=== PATIENT | male | born 1930 | race Caucasian/White ===

== ENCOUNTER 2019-10-25 17:58 | Emergency (ER) | payer OTHER, MEDICARE, BC ==
[2019-10-25] MEDS ORDERED: DIPHTH,PERTUSS(ACELL),TET 0.5 ML DISP.SYRIN IM ONE ×2 (18:20→18:22)
[2019-10-25 18:24] VITALS: BP 131/60; PULSE 93; TEMP 98.4; BMI 23.6
--- NOTE | 2019-10-25 20:03 | PDOC ---
Documentation entered by Kari Dozier SCRIBE, acting as scribe for Brittney Rodriguez DO. Brittney Rodriguez DO: This documentation has been prepared by the umairibarely, Kari Dozier SCRIBE, under my direction and personally reviewed by me in its entirety. I confirm that the documentation accurately reflects all work, treatment, procedures, and medical decision making performed by me. 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 The patient reports he was out running when he slipped and tripped falling on his left side. The patient reports he was trying to avoid landing on his right side, because he is s/p right owusu surgery. The patient reports he was able to get back up without difficulty, ran about half a mile back to his car. The patient reports he ambrose stained injuries to left upper and lower extremities. Denies head injury, LOC, nausea, or vomiting. The patient reports daily use of 81mg ASA, denies any other AC use. The patient doesnt know his last tetanus. Allergies: NKA PCP: Dr. Darion Haro. Past History - Medical History Allergies/Adverse Reactions: Allergies Allergy/AdvReac Type Severity Reaction Status Date / Time No Known Allergies Allergy Verified 10/25/19 17:59 Home Medications: Ambulatory Orders Alfuzosin HCl [Alfuzosin HCl ER] 10 mg PO DAILY 10/25/19 Allopurinol [Zyloprim -] 100 mg PO BID 10/25/19 Aspirin [Aspirin EC] 81 mg PO DAILY 10/25/19 Cephalexin Monohydrate [Keflex -] 500 mg PO Q6H #28 capsule 10/25/19 Lisinopril 20 mg PO DAILY 10/25/19 Simvastatin 40 mg PO DAILY 10/25/19 Review of Systems - Review of Systems Able to Perform ROS?: Yes Comments:: 10/25/19 18:43 GENERAL/CONSTITUTIONAL: No fever or chills. No weakness. HEAD, EYES, EARS, NOSE AND THROAT: no head injury. No change in vision. No ear pain or discharge. No sore throat. GASTROINTESTINAL: No nausea, vomiting, diarrhea or constipation. GENITOURINARY: No dysuria, frequency, or change in urination. CARDIOVASCULAR: No chest pain or shortness of breath. RESPIRATORY: No cough, wheezing, or hemoptysis. MUSCULOSKELETAL: No joint or muscle swelling or pain. No neck or back pain. SKIN: +injury to left upper and lower extremities. No other injury. No rash NEUROLOGIC: No headache, vertigo, loss of consciousness, or change in strength/sensation. ENDOCRINE: No increased thirst. No abnormal weight change. HEMATOLOGIC/LYMPHATIC: No anemia, easy bleeding, or history of blood clots. ALLERGIC/IMMUNOLOGIC: No hives or skin allergy. *Physical Exam - Physical Exam 10/25/19 18:44 Constitutional: Awake, alert, oriented. No acute distress. Head: Normocephalic. Atraumatic Eyes: PERRL. EOMI. Conjunctivae are not pale. ENT: Mucous membranes are moist and intact. Posterior pharynx without exudate o r erythema. Uvula midline. Neck: Supple. Full ROM. No lymphadenopathy. Cardiovascular: Regular rate. Regular rhythm. S1, S2 regular. Pulmonary/Chest: No evidence of respiratory distress. Clear to auscultation bilaterally No wheezing, rales or rhonchi. Abdominal: Soft and non-distended. There is no tenderness. Back: No CVA tenderness. Musculoskeletal: Full range of motion of the shoulders, no tenderness. No edema. No cyanosis. No clubbing. Full range of motion in all extremities. No calf tenderness. Skin: Skin is warm and dry. Left upper extremity: +left lateral elbow skin tear +left forearm 2 skin tears. +medial wrist skin tear. +multiple skin tears to 4th and 5th digits. Multiple skin tears to the pinky. Skin tear at the PIP joint of the middle finger. Left lower extremity: +Small skin avulsion to the patella tendon. +skin tear over the anterior tibia of the left leg. +6cm irregular skin tear to Anterior tib, avulsion. +small skin tear to left leg distal to the large avulsion Right lower extremity: +healed wound to the right anterior tibia. Neurological: Alert and oriented to person, place, and time. Cranial nerves II-XII are grossly intact. Normal speech. Psychiatric: Good eye contact. Normal interaction, affect and behavior. Procedures - Laceration/Wound Repair Left Anterior Dorsal Wrist Wound Length: 2.6 to 5.0 cm Wound Explored: contaminated Wound's Depth, Shape: irregular, flap, contused tissue Irrigated w/ Saline: Yes Anesthesia: 1% Lidocaine (8) Wound Debrided: moderate Wound Repaired With: Sutures, Steri-strips Suture Size/Type: 5:0 Number of Sutures: 8 (finger got 2 sutures) Sterile Dressing Applied: Yes Progress: 10/25/19 19:57 pt tolerated well Left Anterior Leg Wound Length: 5.0 to 7.5 cm Wound Explored: contaminated Wound's Depth, Shape: irregular, flap, contused tissue Irrigated w/ Saline: Yes Anesthesia: 1% Lidocaine (7) Wound Debrided: moderate Wound Repaired With: Sutures, Steri-strips Suture Size/Type: 4:0 Number of Sutures: 8 Sterile Dressing Applied: Yes Progress: 10/25/19 19:58 pt tolerated the procedure well Left Finger 3rd digit Wound Length: to 2.5 cm Wound Explored: contaminated Wound's Depth, Shape: irregular, flap Irrigated w/ Saline: Yes Anesthesia: 1% Lidocaine (1) Wound Debrided: moderate Wound Repaired With: Sutures Suture Size/Type: 5:0 Number of Sutures: 2 Sterile Dressing Applied: Yes Progress: 10/25/19 19:59 pt tolerated the procedure well Medical Decision Making - Medical Decision Making 10/25/19 19:53 a/p: 88yo male with a mechanical trip and fall when outside running today -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 -pt was running in the park when he tripped and fell scraping his LUE and LLE -pt with multiple avulsion wounds to the arm and leg -pt with ttp over the shoulder, wrist, elbow, owusu -wounds washed -boostrix updated -multiple forearm wounds steristripped -dorsal surface of the hand - repaired with 8 5-0 sutures -L middle digit lac repair with 2 5-0 sutures -L tibia repaired with 8 4-0 sutures -dressings applied -pt pending xrays -has been ambulatory in the ER 10/25/19 20:02 pt signed out to the oncoming ed physician pending xrays and re-eval Discharge - Discharge Information Problems reviewed: Yes Clinical Impression/Diagnosis: Lacerations of multiple sites of left arm, Lacerations of multiple sites of left leg Condition: Stable Disposition: HOME - Admission No - Additional Discharge Information Prescriptions: Cephalexin Monohydrate [Keflex -] 500 mg PO Q6H #28 capsule - Follow up/Referral Referrals: ON STAFF,NOT [Primary Care Provider] - Roney Durant MD [Staff Physician] - Cabrera Serna MD [Staff Physician] - Louisa Serna [Staff Physician] - Gabriel Sue MD [Staff Physician] - Eduardo Reed MD [Staff Physician] - - Patient Discharge Instructions Patient Printed Discharge Instructions: DI for Laceration Repair Steri-Strips, DI for Laceration Repair -- Finger, DI for Laceration Repair Additional Instructions: Please keep the wound clean and dry for the next 24 hours. You may wash the wound with soap and water and pat the wounds dry. Please do not remove the steri-strips. Please avoid running until the wounds have healed. Please apply topical antibiotic cream to the wounds daily. Please have the sutures removed in 1 week. Please follow up with your PMD and your senior information security architect as scheduled. Please return to the ER with any further concerns or complaints. - Post Discharge Activity
--- NOTE | 2019-10-25 20:12 | PDOC ---
*Physical Exam - Vital Signs Last Vital Signs Temp Pulse Resp BP Pulse Ox 98.4 F 93 H 18 131/60 96 10/25/19 17:58 10/25/19 17:58 10/25/19 17:58 10/25/19 17:58 10/25/19 17:58 ED Treatment Course - Medications Given in the ED: ED Medications Discontinued Medications Generic Name Dose Route Start Last Admin Trade Name Freq PRN Reason Stop Dose Admin Diphtheria/Tetanus/Acell Pertussis 0.5 ml 10/25/19 18:20 10/25/19 18:35 Boostrix - IM 10/25/19 18:21 0.5 ml .ONCE ONE Administration ED Progress Note - Progress Note Progress Note: Care of this patient received from Dr. Rodriguez. Left shoulder, left wrist, left elbow, left tib/fib x-rays performed. Preliminary interpretation by Imaging tool and production planner of left tib/fib x-rayevidence of old fracture in the proximal tibia; no evidence of acute fracture. Remainder of the imagesno evidence of fracture or dislocation Results of the x-ray study discussed with the patient and his family. Patient asked about small amount of oozing that has appeared on the sterile gauze wrap covering the left lower leg laceration repair. Krzysztof wrap applied to the dressing for light compression effect. Patient will be discharged with instructions to remove the Krzysztof wrap from the left lower leg laceration repair site in the morning. He should keep the repaired wounds dry for the next 2 days and then can wash the areas gently, applying antibiotic ointment daily to the wounds. He should follow-up with his doctor or return to the ER in 2 days for a wound check. Meanwhile, Keflex 500 mg 4 times a day prescribed with first dose given here in the ER Suture removal should take place in 10 days (November 03) Discharge - Discharge Information Problems reviewed: Yes Clinical Impression/Diagnosis: Lacerations of multiple sites of left arm, Lacerations of multiple sites of left leg Condition: Stable Disposition: HOME - Additional Discharge Information Prescriptions: Cephalexin Monohydrate [Keflex -] 500 mg PO Q6H #28 capsule - Follow up/Referral Referrals: Roney Durant MD [Staff Physician] - Louisa Serna [Staff Physician] - Cabrera Serna MD [Staff Physician] - Gabriel Sue MD [Staff Physician] - Eduardo Reed MD [Staff Physician] - ON STAFF,NOT [Primary Care Provider] - Aravind Newby DO [Staff Physician] - - Patient Discharge Instructions Patient Printed Discharge Instructions: DI for Laceration Repair, DI for Laceration Repair Steri-Strips, DI for Laceration Repair -- Finger Additional Instructions: Please keep the wound clean and dry for the next 24 hours.Can remove the Krzysztof wrap in tomorrow AM. You may wash the wound with soap and water and pat the wounds dry. Please do not remove the steri-strips. Please avoid running until the wounds have healed. Please apply topical antibiotic cream to the wounds daily. Please have the sutures removed in 10 days. Please follow up with your PMD and your provider network analyst as scheduled. Please return to the ER with any further concerns or complaints. See your doctor or return here in 2 days for wound check Followup with orthopedist(Drs. Newby/Deniz) if you have persistent shoulder/wrist/leg pain - Post Discharge Activity
[2019-10-25] MEDS ORDERED: CEPHALEXIN MONOHYDRATE 500 MG CAPSULE (UD) PO ONE (21:12)
[2019-10-25] MEDS ORDERED: CEPHALEXIN MONOHYDRATE 500 MG CAPSULE (UD) ONE (21:12)
== END 2019-10-25 21:16 | disposition home or self-care (01) ==
LOC: FER 17:58 → SUPCPDRO 17:58 → FER 21:16
PROC: 0HQGXZZ Repair Left Hand Skin, External Approach (ICD-10-PCS; principal; 2019-10-25)
PROC: 0HQLXZZ Repair Left Lower Leg Skin, External Approach (ICD-10-PCS; 2019-10-25)
PROC: 3E0234Z Introduction of Serum, Toxoid and Vaccine into Muscle, Percutaneous Approach (ICD-10-PCS; 2019-10-25)
DX: S61.512A Laceration without foreign body of left wrist, initial encounter (principal); S61.215A Laceration without foreign body of left ring finger without damage to nail, initial encounter; S81.812A Laceration without foreign body, left lower leg, initial encounter
CPT/HCPCS: 73030-TC-LT-FY; 73070-TC-LT-FY; 73110-TC-LT-FY; 73130-TC-LT-FY; 73590-TC-LT-FY; 90715; 99285-25

== ENCOUNTER 2019-10-29 09:39 | Inpatient (IN) | payer OTHER, BC, MEDICARE ==
--- NOTE | 2019-10-29 10:38 | PDOC ---
Suture Removal/Wound Check HPI - History of Present Illness Chief Complaint: Revisit,Wound Recheck Stated Complaint: WOUND CHECK Time Seen by Provider: 10/29/19 09:53 History Source: Yes: Patient, Spouse ( present at bedside) Exam Limitations: Yes: No Limitations Treated at: [facility] ED Date of Last ED visit: 10/27/19 - Previous ED Treatment Type of procedure performed on last visit: Yes: Other (Wound check.) Antibiotics Prescribed: Yes (Keflex 500mg QID) Past History - Medical History Allergies/Adverse Reactions: Allergies Allergy/AdvReac Type Severity Reaction Status Date / Time No Known Allergies Allergy Verified 10/27/19 10:38 Home Medications: Ambulatory Orders Alfuzosin HCl [Alfuzosin HCl ER] 10 mg PO DAILY 10/25/19 Allopurinol [Zyloprim -] 100 mg PO BID 10/25/19 Aspirin [Aspirin EC] 81 mg PO DAILY 10/25/19 Cephalexin Monohydrate [Keflex -] 500 mg PO Q6H #28 capsule 10/25/19 Lisinopril 20 mg PO DAILY 10/25/19 Simvastatin 40 mg PO DAILY 10/25/19 Cancer: (sarcoma rt leg) COPD: No HTN: Yes Hypercholesterolemia: Yes - Surgical History Abdominal Surgery: Yes (HERNIA REPAIR) - Immunization History TDAP Vaccination: Yes (10/25/2019) Immunization Up to Date: Yes - Psycho-Social/Smoking History Smoking History: Never smoked Have you smoked in the past 12 months: No - Substance Abuse Hx (Audit-C & DAST Scrn) How often the patient has a drink containing alcohol: 2-3 times / week How often the patient has six or more drinks on one occasion: Never Score: In Men: 4 or > Positive; In Women: 3 or > Positive: 3 Screen Result (Pos requires Nsg. Audit-10AR): Negative In the last yr the pt used illegal drug/Rx for NonMed reason: No Score: Yes response is considered Positive: 0 Screen Result (Positive result requires Nsg. DAST-10): Negative *Physical Exam - Vital Signs Last Vital Signs Temp Pulse Resp BP Pulse Ox 98.4 F 84 16 126/62 96 10/29/19 09:40 10/29/19 09:40 10/29/19 09:40 10/29/19 09:40 10/29/19 09:40 Discharge - Discharge Information Condition: Good - Follow up/Referral - Patient Discharge Instructions - Post Discharge Activity
[2019-10-29] MEDS ORDERED: CLINDAMYCIN 600MG PREMIX IVPB 600 MG/50 ML BAG IVPB ONE (11:08)
--- NOTE | 2019-10-29 11:09 | PDOC ---
History of Present Illness - General Chief Complaint: Revisit,Wound Recheck Stated Complaint: WOUND CHECK Time Seen by Provider: 10/29/19 09:53 History Source: Patient, Spouse ( present at bedside), Old Records - History of Present Illness Initial Comments: 88 y/o male presenting to [place] ER for evaluation of traumatic left leg and left hand wound check. Briefly, the pt fell while running four days ago. Was evaluated at this department and the wounds were closed with sutures. Pt was prescribed Keflex abx, reports good compliance. Denies worsening pain, fever, chills, or discharge from the wounds. Cannot recall if the overlying redness has changed. Also of note, the pt received a call back regarding the tiny avulsion of the distal humerus. Past History - Travel History Traveled outside of the country in the last 30 days: No Close contact w/someone who was outside of country & ill: No - Medical History Allergies/Adverse Reactions: Allergies Allergy/AdvReac Type Severity Reaction Status Date / Time No Known Allergies Allergy Verified 10/27/19 10:38 Home Medications: Ambulatory Orders Alfuzosin HCl [Alfuzosin HCl ER] 10 mg PO DAILY 10/25/19 Allopurinol [Zyloprim -] 100 mg PO BID 10/25/19 Aspirin [Aspirin EC] 81 mg PO DAILY 10/25/19 Cephalexin Monohydrate [Keflex -] 500 mg PO Q6H #28 capsule 10/25/19 Lisinopril 20 mg PO DAILY 10/25/19 Simvastatin 40 mg PO DAILY 10/25/19 Cancer: Yes (sarcoma rt leg) COPD: No HTN: Yes Hypercholesterolemia: Yes - Surgical History Abdominal Surgery: Yes (HERNIA REPAIR) - Immunization History TDAP Vaccination: Yes (10/25/2019) Immunization Up to Date: Yes - Psycho-Social/Smoking History Smoking History: Never smoked Have you smoked in the past 12 months: No - Substance Abuse Hx (Audit-C & DAST Scrn) How often the patient has a drink containing alcohol: 2-3 times / week How often the patient has six or more drinks on one occasion: Never Score: In Men: 4 or > Positive; In Women: 3 or > Positive: 3 Screen Result (Pos requires Nsg. Audit-10AR): Negative In the last yr the pt used illegal drug/Rx for NonMed reason: No Score: Yes response is considered Positive: 0 Screen Result (Positive result requires Nsg. DAST-10): Negative Review of Systems - Review of Systems Able to Perform ROS?: Yes Comments:: 10 point review of systems completed. All systems negative except as noted above. *Physical Exam - Vital Signs Last Vital Signs Temp Pulse Resp BP Pulse Ox 98.4 F 84 16 126/62 96 10/29/19 09:40 10/29/19 09:40 10/29/19 09:40 10/29/19 09:40 10/29/19 09:40 - Physical Exam General Appearance: Yes: Appropriately Dressed. No: Apparent Distress HEENT: positive: Normal Voice Neck: positive: Supple Respiratory/Chest: negative: Respiratory Distress Cardiovascular: positive: Regular Rate Extremity: positive: Erythema (Localized warmth, swelling, and erythema overlying the dorsal surface of the left hand. Further warmth and erythema overlying the wounds to his right lower extremity. No lymphatic streaking noted in either extremity.), Other (Able to actively flex and extend the digits of his left hand without difficutly. Compartments soft.) Integumentary: positive: Erythema Neurologic: positive: Fully Oriented, Alert, Normal Mood/Affect, Normal Response ED Treatment Course - LABORATORY CBC & Chemistry Diagram: 10/29/19 12:10 10/29/19 12:10 Medical Decision Making - Medical Decision Making Concern for infection of traumatic wounds despite PO Keflex therapy. Will admit for IV abx and further observation given infection location on the hand. Ordered Clindamycin for IV abx given ease of transition to PO therapy. Low suspicion for sepsis/ systemic infection. Sutures removed. ED RN to apply fresh, dry dressing to the area. COVID-19 swab ordered per hospital protocol. CBC and CMP reviewed. No clinically significant derangement. Telephone discussion with NENA Miller. Verbally appraised of the pts HPI, ED course, and current plan of management. Will obs pt on med/surg for attending Dr. Becker. Will consult orthopedic / hand for further evaluation of the woun d and the arm. Case discussed with ED Attending Dr. Aceves. Mickey Calzada M.D., PGY3 Emergency Medicine Resident Discharge - Discharge Information Problems reviewed: Yes Clinical Impression/Diagnosis: Wound infection, posttraumatic, Cellulitis of left hand Traumatic open wound of left lower leg Qualifiers: Encounter type: subsequent encounter Qualified Code(s): S81.802D - Unspecified open wound, left lower leg, subsequent encounter Condition: Stable - Admission Yes - Follow up/Referral - Patient Discharge Instructions - Post Discharge Activity
[2019-10-29] MEDS ORDERED: CLINDAMYCIN PHOSPHATE 600 MG/4 ML VIAL ONE (11:29)
--- NOTE | 2019-10-29 11:29 | PDOC ---
Attending Attestation - Resident Resident Name: Mickey Calzada - ED Attending Attestation I have performed the following: I have examined & evaluated the patient, The case was reviewed & discussed with the resident, I agree w/resident's findings & plan, Exceptions are as noted - HPI HPI: 10/29/19 11:28 88 years old with hypertension status post laceration to owusu and hand status post mechanical fall with redness to owusu and hand started on Keflex 2 days ago presents to the ED for wound check. No complaints at this time - Physicial Exam PE: 10/29/19 11:28 Vitals: Triage Vital signs reviewed General Appearance: No acute distress, well nourished well developed, Head: Atraumatic, Extremities: Full range of motion to all extremities, no cyanosis, clubbing, or edema Skin: Warmth and redness surrounding sutures to owusu warmth and redness surrounding sutures to left hand Neuro: AOX3; cranial Nerves 2-12 grossly intact, strength intact to all extremities, sensation intact to all extremities, gait normal Psych: Normal mood, normal affect - Medical Decision Making 10/29/19 11:29 Concern for worsening cellulitis despite outpatient oral antibiotics Given age and comorbidities and location of infection will remove sutures place patient on IV clindamycin observe overnight with hand consultation Discharge - Discharge Information Problems reviewed: Yes Clinical Impression/Diagnosis: Wound infection, posttraumatic, Cellulitis of left hand Traumatic open wound of left lower leg Qualifiers: Encounter type: subsequent encounter Qualified Code(s): S81.802D - Unspecified open wound, left lower leg, subsequent encounter Condition: Stable - Follow up/Referral - Patient Discharge Instructions - Post Discharge Activity
[2019-10-29 13:04] LABS: ALBUMIN 3.6 g/dl (3.4-5.0); BILIRUBIN,TOTAL 0.7 mg/dl (0.2-1); CREATININE 1.3 mg/dl (0.55-1.3); POTASSIUM 4.6 mmol/L (3.5-5.1); TOT PROT 6.5 g/dl (6.4-8.2)
--- NOTE | 2019-10-29 13:05 | HP ---
CHIEF COMPLAINT: Left hand and left leg lacerations PCP: Dr. Tahir Orlando, [facility], ; cell [phone] Cardiology: Dr. 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 Patient presented to the [facility] for the third time this week. On 10/24 tripped and fell while out running and fell on his left side. He was able to get up, run back to his car, and come to the ED. He had lacerations to his left hand, wrist, and leg, closed with sutures. He was discharged on Keflex. He returned to the ED on 10/26 for a wound check and there were no signs of infection at that time. Patient returned today for another wound check and for followup of xray findings of a tiny avulsion fracture of the distal humerus. Sutures were removed. The left leg was erythematous, slightly warm, and mildly swollen. Skin over the left owusu is friable, multiple crusted scabs, and very mild oozing of serosanguinous fluid just below the knee from one of the scabbed lacerations. Patient denies fever, sweats, chills. Denies pain to any of his extremities. 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"); runs 2-3 miles every day Smoking: no Alcohol: no Drugs: no Allergies No Known Allergies Allergy (Verified 10/27/19 10:38) Family history: non-contributory HOME MEDICATIONS: Home Medications Medication Instructions Recorded Alfuzosin HCl [Alfuzosin HCl ER] 10 mg PO DAILY 10/25/19 Allopurinol [Zyloprim -] 100 mg PO BID 10/25/19 Aspirin [Aspirin EC] 81 mg PO DAILY 10/25/19 Cephalexin Monohydrate [Keflex -] 500 mg PO Q6H #28 capsule 10/25/19 Lisinopril 20 mg PO DAILY 10/25/19 Simvastatin 40 mg PO DAILY 10/25/19 REVIEW OF SYSTEMS CONSTITUTIONAL: Absent: fever, chills, diaphoresis, generalized weakness, malaise, loss of appetite, weight change HEENT: Absent: rhinorrhea, nasal congestion, throat pain, throat swelling, difficulty swallowing, mouth swelling, ear pain, eye pain, visual changes CARDIOVASCULAR: Absent: chest pain, syncope, palpitations, irregular heart rate, lightheadedness, peripheral edema RESPIRATORY: Absent: cough, shortness of breath, dyspnea with exertion, orthopnea, wheezing, stridor, hemoptysis GASTROINTESTINAL: Absent: abdominal pain, abdominal distension, nausea, vomiting, diarrhea, constipation, melena, hematochezia GENITOURINARY: Absent: dysuria, frequency, urgency, hesitancy, hematuria, flank pain, genital pain MUSCULOSKELETAL: Absent: myalgia, arthralgia, joint swelling, back pain, neck pain SKIN: +lacerations to left hand and left leg s/p fall several days ago; developing redness to LLE Absent: rash, itching, pallor HEMATOLOGIC/IMMUNOLOGIC: Absent: easy bleeding, easy bruising, lymphadenopathy, frequent infections ENDOCRINE: Absent: unexplained weight gain, unexplained weight loss, heat intolerance, cold intolerance NEUROLOGIC: Absent: headache, focal weakness or paresthesias, dizziness, unsteady gait, seizure, mental status changes, bladder or bowel incontinence PSYCHIATRIC: Absent: anxiety, depression, suicidal or homicidal ideation, hallucinations. PHYSICAL EXAMINATION Vital Signs - 24 hr 10/29/19 09:40 Temperature 98.4 F Pulse Rate 84 Respiratory 16 Rate Blood Pressure 126/62 O2 Sat by Pulse 96 Oximetry (%) GENERAL: Awake, alert, and fully oriented, in no acute distress. HEAD: Normal with no signs of trauma. EYES: Pupils equal, round and reactive to light, extraocular movements intact, sclera anicteric, conjunctiva clear. No lid lag. LUNGS: Breath sounds equal, clear to auscultation bilaterally HEART: Regular rate and rhythm, S1, S2 ABDOMEN: Soft, nontender, not distended B/L Upper Ext: 2+ pulses, warm, well-perfused, can flex/extend fingers, equal team foreman, sensory intact; tremors bilaterally Left hand: crusted scabbing across the dorsal MCPs, no active bleeding, minimal erythema, no swelling, no warmth Left leg: crusted scabbing on pretibial area, tiny anound of serosanguinous drainage just below the knee; skin is thin, friable LOWER EXTREMITIES: 2+ pulses, warm, well-perfused. No calf tenderness. No peripheral edema. NEUROLOGICAL: Cranial nerves II-XII intact. Normal speech. 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 Admitted for LLE cellulitis. LLE cellulitis --failed outpatient course of Keflex --per ID, start cefazolin Lacerations to left hand, left lower extremity --local wound care: irrigate with NS, xerofoam, Telfa non-stick, gently wrap with sterile cling q12h Hypertension --BP stable --continue lisinopril Carotid artery disease s/p endarterectomy --continue ASA, statin Benign essential tremor --at baseline --not on medication Gout --stable, continue allopurinol Enlarged prostate --continue tamsulosin Right leg sarcoma --has had 2 post-op visits, next follow up appointment 11/19/19 FEN Fluids: PO intake adequate Electrolytes: replete as indicated Nutrition: regular diet DVT prophylaxis: subq heparin Physical therapy Dispo: continues to require inpatient care. Full code. Family Medical History Family History: Unremarkable Visit type - Medication Review Med list reviewed for High Risk Meds patients 65 and older: Yes - Emergency Visit Emergency Visit: Yes ED Registration Date: 10/29/19 Care time: The patient presented to the Emergency Department on the above date and was hospitalized for further evaluation of their emergent condition. - New Patient This patient is new to me today: Yes Date on this admission: 10/29/19 - Critical Care Critical Care patient: No
[2019-10-29 13:07] LABS: HEMATOCRIT 37.7 % (35.4-49); HEMOGLOBIN 12.6 GM/dl (11.7-16.9); MCH 31.8 pg (25.7-33.7); MCHC 33.3 g/dl (32.0-35.9); MEAN CELL VOLUME 95.4 fl (80-96); MEAN PLT VOLUME 9.1 fl (7.5-11.1); PLATELET COUNT 268 K/MM3 (134-434); RBC 3.96 M/mm3 (4.00-5.60); RDW 12.5 % (11.9-15.9); WHITE BLOOD COUNT 8.8 K/mm3 (4.0-10.8)
[2019-10-29 14:27] LABS: PLATELET ESTIMATE ADEQUATE
[2019-10-29 14:33] VITALS: BMI 23.8
[2019-10-29] MEDS ORDERED: ACETAMINOPHEN 325 MG TABLET (FP) PO PRN (15:01)
--- NOTE | 2019-10-29 15:09 | CON.ID ---
Consult - Smoking History Smoking history: Never smoked Have you smoked in the past 12 months: No Home Medications - Allergies Allergies/Adverse Reactions: Allergies Allergy/AdvReac Type Severity Reaction Status Date / Time No Known Allergies Allergy Verified 10/27/19 10:38 - Home Medications Home Medications: Ambulatory Orders Alfuzosin HCl [Alfuzosin HCl ER] 10 mg PO DAILY 10/25/19 Allopurinol [Zyloprim -] 100 mg PO BID 10/25/19 Aspirin [Aspirin EC] 81 mg PO DAILY 10/25/19 Cephalexin Monohydrate [Keflex -] 500 mg PO Q6H #28 capsule 10/25/19 Lisinopril 20 mg PO DAILY 10/25/19 Simvastatin 40 mg PO DAILY 10/25/19 Physical Exam Vital Signs: Vital Signs Temperature 98.0 F 10/29/19 14:05 Pulse Rate 76 10/29/19 14:05 Respiratory Rate 17 10/29/19 14:05 Blood Pressure 151/64 10/29/19 14:05 O2 Sat by Pulse Oximetry (%) 100 10/29/19 14:05 Labs: CBC, BMP 10/29/19 12:10 10/29/19 12:10
[2019-10-29] MEDS: CEFAZOLIN 1 GM/D5W 1 GM/50 ML BAG IVPB SCH (18:15)
[2019-10-29] MEDS: HEPARIN NA (PORCINE) 5,000 UNITS/ML 1ML VIAL SQ SCH (22:14)
[2019-10-29] MEDS: ALLOPURINOL 100 MG TABLET (FP) PO SCH (22:14)
[2019-10-30] MEDS: CEFAZOLIN 1 GM/D5W 1 GM/50 ML BAG IVPB SCH ×3 (01:19→18:27)
[2019-10-30] MEDS: HEPARIN NA (PORCINE) 5,000 UNITS/ML 1ML VIAL SQ SCH ×3 (05:35→21:35)
--- NOTE | 2019-10-30 08:05 | PN ---
Physical Exam: SUBJECTIVE: Patient seen and examined. Anxious to go home. Denies pain. OBJECTIVE: Vital Signs Period Temp Pulse Resp BP Sys/Sorto Pulse Ox Last 24 Hr 98.0 F-98.7 F 76-89 16-18 126-166/51-68 93-100 GENERAL: Awake, alert, and fully oriented, in no acute distress. LUNGS: Breath sounds equal, clear to auscultation bilaterally HEART: Regular rate and rhythm, S1, S2 ABDOMEN: Soft, nontender, not distended B/L Upper Ext: 2+ pulses, warm, well-perfused, can flex/extend fingers, equal worm grower, sensory intact; tremors bilaterally Left hand: crusted scabbing across the dorsal MCPs, no active bleeding, minimal erythema, no swelling, no warmth Left leg: crusted scabbing on pretibial area, tiny anound of serosanguinous drainage just below the knee; skin is thin, friable, erythema resolving NEUROLOGICAL: Cranial nerves II-XII intact. Normal speech. Laboratory Results - last 24 hr 10/29/19 10/29/19 12:10 12:10 WBC 8.8 RBC 3.96 L Hgb 12.6 Hct 37.7 MCV 95.4 MCH 31.8 MCHC 33.3 RDW 12.5 Plt Count 268 MPV 9.1 Absolute Neuts (auto) 6.7 Neutrophils % No Result Required. Neutrophils % (Manual) 78.0 Band Neutrophils % 1.0 Lymphocytes % No Result Required. Lymphocytes % (Manual) 15.0 Monocytes % (Manual) 5 Eosinophils % (Manual) 1.0 Platelet Estimate Adequate Sodium 140 Potassium 4.6 Chloride 103 Carbon Dioxide 25 Anion Gap 12 BUN 33.0 H Creatinine 1.3 Est GFR (CKD-EPI)AfAm 56.86 Est GFR (CKD-EPI)NonAf 49.06 Random Glucose 66 L Calcium 9.0 Total Bilirubin 0.7 AST 33 ALT 18 Alkaline Phosphatase 71 Total Protein 6.5 Albumin 3.6 Active Medications Generic Name Dose Route Start Last Admin Trade Name Freq PRN Reason Stop Dose Admin Acetaminophen 650 mg 10/29/19 15:01 Tylenol - PO Q6H PRN PAIN LEVEL 1-5 Allopurinol 100 mg 10/29/19 22:00 10/29/19 22:14 Zyloprim - PO Not Given BID [facility] Aspirin 81 mg 10/30/19 10:00 Ecotrin - PO DAILY [facility] Atorvastatin Calcium 20 mg 10/30/19 22:00 Lipitor - PO HS [facility] Heparin Sodium (Porcine) 5,000 unit 10/29/19 22:00 10/30/19 05:35 Heparin - SQ Not Given TID [facility] Cefazolin Sodium 1 gm in 50 mls @ 100 mls/hr 10/29/19 18:00 10/30/19 01:19 Ancef 1 Gm Premixed Ivpb - IVPB 100 mls/hr Q8H-IV [facility] Administration Lisinopril 20 mg 10/30/19 10:00 Prinivil PO DAILY [facility] Tamsulosin HCl 0.4 mg 10/30/19 08:30 Flomax - PO DAILY@0830 [facility] ASSESSMENT/PLAN: 88 year-old male with a PMH significant for HTN, carotid artery disease s/p endarterectomy, benign essential tremor, gout, enlarged prostate, and 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 Admitted for LLE cellulitis. LLE cellulitis --improved --failed outpatient course of Keflex --continue cefazolin (day #2) Lacerations to left hand, left lower extremity --local wound care: irrigate with NS, xerofoam, gently wrap with sterile cling q12h Hypertension --BP stable --continue lisinopril Carotid artery disease s/p endarterectomy --continue ASA, statin Benign essential tremor --at baseline --not on medication Gout --stable, continue allopurinol Enlarged prostate --continue tamsulosin Right leg sarcoma --has had 2 post-op visits, next follow up appointment 11/19/19 FEN Fluids: PO intake adequate Electrolytes: replete as indicated Nutrition: regular diet DVT prophylaxis: subq heparin Physical therapy Dispo: plan to discharge tomorrow on augmentin x 7 days and should follow up wit [facility]. Full code. Visit type - Emergency Visit Emergency Visit: Yes ED Registration Date: 10/29/19 Care time: The patient presented to the Emergency Department on the above date and was hospitalized for further evaluation of their emergent condition. - New Patient This patient is new to me today: No - Critical Care Critical Care patient: No - Discharge Referral Referred to [facility] No - Medication Review Med list reviewed for High Risk Meds patients 65 and older: Yes
[2019-10-30 08:23] LABS: BASO % 0.9 % (0-2.0); EOS % 3.4 % (0-4.5); HEMATOCRIT 33.5 % (35.4-49); HEMOGLOBIN 11.1 GM/dl (11.7-16.9); LYMPH % 13.7 % (8-40); MCH 31.5 pg (25.7-33.7); MEAN CELL VOLUME 95.3 fl (80-96); MEAN PLT VOLUME 9.1 fl (7.5-11.1); MONO % 9.4 % (3.8-10.2); NEUT % 72.6 % (42.8-82.8); PLATELET COUNT 263 K/MM3 (134-434); RBC 3.51 M/mm3 (4.00-5.60); RDW 12.6 % (11.9-15.9); WHITE BLOOD COUNT 8.5 K/mm3 (4.0-10.8)
[2019-10-30 08:32] LABS: ALBUMIN 2.9 g/dl (3.4-5.0); BILIRUBIN,TOTAL 0.6 mg/dl (0.2-1); CALCIUM 8.5 mg/dl (8.5-10); CREATININE 1.2 mg/dl (0.55-1.3); MAGNESIUM 1.9 mg/dL (1.8-2.4); POTASSIUM 4.2 mmol/L (3.5-5.1); TOT PROT 5.3 g/dl (6.4-8.2)
[2019-10-30] MEDS: ASPIRIN COATED 81 MG TABLET.EC PO SCH (09:53)
[2019-10-30] MEDS: LISINOPRIL 20 MG TABLET (FP) PO SCH (09:53)
[2019-10-30] MEDS: ALLOPURINOL 100 MG TABLET (FP) PO SCH ×2 (09:53→21:27)
[2019-10-30] MEDS: TAMSULOSIN HCL 0.4 MG CAP PO SCH (09:53)
[2019-10-30] MEDS ORDERED: PATIENT'S OWN MEDICATION (NON-FORMULARY) (Simvastatin [Simvastatin] 40 MG) PO SCH (10:00)
[2019-10-30] MEDS ORDERED: PATIENT'S OWN MEDICATION (NON-FORMULARY) (Alfuzosin Hcl [Alfuzosin Hcl Er] 10 MG) PO SCH (10:00)
--- NOTE | 2019-10-30 10:38 | CON.ORTH ---
Consult Consult Specialty:: orthopedics - History of Present Illness Chief Complaint: hand cellulitis History of Present Illness: This is a pleasant 88-year-old gentleman who had initially been seen in the ER after suffering wounds to the left hand and leg after a fall running. He had some suturing and was placed on by mouth Keflex. Despite this, he proceeded to develop some erythema consistent with cellulitis. He was admitted for IV antibiotics. He notes no pain at this time. He has no other complaints. He denies any fever or chills. - History Source History Provided By: Patient, Medical Record Limitations to Obtaining History: No Limitations - Smoking History Smoking history: Never smoked Have you smoked in the past 12 months: No Home Medications - Allergies Allergies/Adverse Reactions: Allergies Allergy/AdvReac Type Severity Reaction Status Date / Time No Known Allergies Allergy Verified 10/27/19 10:38 - Home Medications Home Medications: Ambulatory Orders Alfuzosin HCl [Alfuzosin HCl ER] 10 mg PO DAILY 10/25/19 Allopurinol [Zyloprim -] 100 mg PO BID 10/25/19 Aspirin [Aspirin EC] 81 mg PO DAILY 10/25/19 Cephalexin Monohydrate [Keflex -] 500 mg PO Q6H #28 capsule 10/25/19 Lisinopril 20 mg PO DAILY 10/25/19 Simvastatin 40 mg PO DAILY 10/25/19 Physical Exam for Ortho Vital Signs: Vital Signs Temperature 97.5 F L 10/30/19 09:46 Pulse Rate 83 10/30/19 09:46 Respiratory Rate 18 10/30/19 09:46 Blood Pressure 135/67 10/30/19 09:46 O2 Sat by Pulse Oximetry (%) 97 10/30/19 09:46 Constitutional: Yes: Well Nourished, No Distress, Calm Extremities: Yes: Other (Examination of the left hand demonstrates healing abrasions over the fingers and dorsal area over the metacarpals. There is no active discharge at this time. There is mild surrounding erythema. There is no fluctuance. There is comfortable range of motion of the digits. There is old fracture deformity at the wrist. Sensation is intact light touch. 2+ radial pulse. Intact FDS, FDP, ED.) Labs: CBC, BMP 10/30/19 07:20 10/30/19 07:20 Imaging - Results X-ray: Report Reviewed, Image Reviewed (No evidence of fracture in the hand, wrist or leg.) Problem List - Problems (1) Cellulitis of left hand Assessment/Plan: I reviewed today's findings with Lior. His exam is consistent with mild cellulitis. He does appear to be responding well to IV antibiotics at this time we would likely benefit from some additional treatment. He can then transition to a home antibiotic regimen as per Dr. Mcelroy. He should have daily wound care. There is no indication for any surgical intervention. Please reconsult should his condition at all worsen. Problems reviewed: Yes Code(s): L03.114 - CELLULITIS OF LEFT UPPER LIMB
--- NOTE | 2019-10-30 15:18 | PN ---
Progress Note, Physician History of Present Illness: stable leg and had healing well - Current Medication List Current Medications: Active Medications Acetaminophen (Tylenol -) 650 mg PO Q6H PRN PRN Reason: PAIN LEVEL 1-5 Allopurinol (Zyloprim -) 100 mg PO BID [facility] Last Admin: 10/30/19 09:53 Dose: 100 mg Documented by: Aspirin (Ecotrin -) 81 mg PO DAILY [facility] Last Admin: 10/30/19 09:53 Dose: 81 mg Documented by: Atorvastatin Calcium (Lipitor -) 20 mg PO HS [facility] Heparin Sodium (Porcine) (Heparin -) 5,000 unit SQ TID [facility] Last Admin: 10/30/19 14:16 Dose: Not Given Documented by: Cefazolin Sodium (Ancef 1 Gm Premixed Ivpb -) 1 gm in 50 mls @ 100 mls/hr IVPB Q8H-IV [facility] Last Admin: 10/30/19 09:53 Dose: 100 mls/hr Documented by: Lisinopril (Prinivil) 20 mg PO DAILY [facility] Last Admin: 10/30/19 09:53 Dose: 20 mg Documented by: Tamsulosin HCl (Flomax -) 0.4 mg PO DAILY@0830 [facility] Last Admin: 10/30/19 09:53 Dose: 0.4 mg Documented by: - Objective Vital Signs: Vital Signs Temperature 98.0 F 10/30/19 14:12 Pulse Rate 81 10/30/19 14:12 Respiratory Rate 81 H 10/30/19 14:12 Blood Pressure 142/74 10/30/19 14:12 O2 Sat by Pulse Oximetry (%) 97 10/30/19 14:12 Constitutional: Yes: No Distress, Calm Cardiovascular: Yes: S1, S2 Respiratory: Yes: Regular, CTA Bilaterally Gastrointestinal: Yes: Normal Bowel Sounds, Soft Musculoskeletal: Yes: WNL Extremities: Yes: Erythema, Other Wound/Incision: Yes: Clean/Dry, Dressing Removed, Other Neurological: Yes: Alert, Oriented Psychiatric: Yes: Alert, Oriented Labs: CBC, BMP 10/30/19 07:20 10/30/19 07:20 Assessment/Plan 88 year-old male with a PMH significant for HTN, carotid artery disease s/p endarterectomy, benign essential tremor, gout, enlarged prostate, and 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 Admitted for LLE cellulitis. LLE cellulitis Lacerations to left hand, left lower extremity Hypertension Carotid artery disease s/p endarterectomy Benign essential tremor Gout Enlarged prostate Right leg sarcoma plan continue abx will change to oral tomorrow rest as per the team
[2019-10-30] MEDS ORDERED: ATORVASTATIN CA 20 MG TABLET (FP) PO SCH (22:00)
[2019-10-31] MEDS: CEFAZOLIN 1 GM/D5W 1 GM/50 ML BAG IVPB SCH ×2 (01:49→09:38)
[2019-10-31] MEDS: HEPARIN NA (PORCINE) 5,000 UNITS/ML 1ML VIAL SQ SCH (05:24)
[2019-10-31 06:09] VITALS: PULSE 76
--- NOTE | 2019-10-31 08:52 | PN ---
Physical Exam: SUBJECTIVE: Patient seen and examined OBJECTIVE: Vital Signs Period Temp Pulse Resp BP Sys/Sorto Pulse Ox Last 24 Hr 97.5 F-98.3 F 70-83 16-81 131-156/49-74 95-97 GENERAL: The patient is awake, alert, and fully oriented, in no acute distress. HEAD: Normal with no signs of trauma. EYES: PERRL, extraocular movements intact, sclera anicteric, conjunctiva clear. No ptosis. ENT: Ears normal, nares patent, oropharynx clear without exudates, moist mucous membranes. NECK: Trachea midline, full range of motion, supple. LUNGS: Breath sounds equal, clear to auscultation bilaterally, no wheezes, no crackles, no accessory muscle use. HEART: Regular rate and rhythm, S1, S2 without murmur, rub or gallop. ABDOMEN: Soft, nontender, nondistended, normoactive bowel sounds, no guarding, no rebound, no hepatosplenomegaly, no masses. EXTREMITIES: 2+ pulses, warm, well-perfused, no edema. NEUROLOGICAL: Cranial nerves II through XII grossly intact. Normal speech, gait not observed. PSYCH: Normal mood, normal affect. SKIN: Warm, dry, normal turgor, no rashes or lesions noted Laboratory Results - last 24 hr 10/29/19 11:45 COVID-19 ([facility]) Not detected Active Medications Generic Name Dose Route Start Last Admin Trade Name Freq PRN Reason Stop Dose Admin Acetaminophen 650 mg 10/29/19 15:01 Tylenol - PO Q6H PRN PAIN LEVEL 1-5 Allopurinol 100 mg 10/29/19 22:00 10/30/19 21:27 Zyloprim - PO 100 mg BID [facility] Administration Aspirin 81 mg 10/30/19 10:00 10/30/19 09:53 Ecotrin - PO 81 mg DAILY [facility] Administration Atorvastatin Calcium 20 mg 10/30/19 22:00 10/30/19 21:27 Lipitor - PO Not Given HS [facility] Heparin Sodium (Porcine) 5,000 unit 10/29/19 22:00 10/31/19 05:24 Heparin - SQ Not Given TID [facility] Cefazolin Sodium 1 gm in 50 mls @ 100 mls/hr 10/29/19 18:00 10/31/19 01:49 Ancef 1 Gm Premixed Ivpb - IVPB 100 mls/hr Q8H-IV [facility] Administration Lisinopril 20 mg 10/30/19 10:00 10/30/19 09:53 Prinivil PO 20 mg DAILY [facility] Administration Tamsulosin HCl 0.4 mg 10/30/19 08:30 10/30/19 09:53 Flomax - PO 0.4 mg DAILY@0830 [facility] Administration ASSESSMENT/PLAN: Visit type - Emergency Visit Emergency Visit: Yes ED Registration Date: 10/29/19 Care time: The patient presented to the Emergency Department on the above date and was hospitalized for further evaluation of their emergent condition. - New Patient This patient is new to me today: Yes Date on this admission: 10/31/19 - Critical Care Critical Care patient: No - Medication Review Med list reviewed for High Risk Meds patients 65 and older: Yes
[2019-10-31] MEDS: LISINOPRIL 20 MG TABLET (FP) PO SCH (09:38)
[2019-10-31] MEDS: ASPIRIN COATED 81 MG TABLET.EC PO SCH (09:38)
[2019-10-31] MEDS: TAMSULOSIN HCL 0.4 MG CAP PO SCH (09:38)
[2019-10-31] MEDS: ALLOPURINOL 100 MG TABLET (FP) PO SCH (09:38)
[2019-10-31 10:29] VITALS: BP 141/60; TEMP 97.9
--- NOTE | 2019-10-31 11:12 | DS ---
Physical Exam: SUBJECTIVE: Patient seen and examined pt at bedside, reviewed all systems reported negative. OBJECTIVE: Vital Signs Period Temp Pulse Resp BP Sys/Sorto Pulse Ox Last 24 Hr 97.9 F-98.3 F 70-81 16-81 131-156/49-74 95-97 PHYSICAL EXAM GENERAL: The patient is awake, alert, and fully oriented, in no acute distress. HEAD: Normal with no signs of trauma. EYES: PERRL, extraocular movements intact, sclera anicteric, conjunctiva clear. ENT: Ears normal, nares patent, oropharynx clear without exudates, moist mucous membranes. NECK: Trachea midline, full range of motion, supple. LUNGS: Breath sounds equal, clear to auscultation bilaterally, no wheezes, no crackles, no accessory muscle use. HEART: Regular rate and rhythm, S1, S2 without murmur, rub or gallop. ABDOMEN: Soft, nontender, nondistended, normoactive bowel sounds, no guarding, no rebound, no hepatosplenomegaly, no masses. EXTREMITIES: 2+ pulses, warm, well-perfused, no edema. NEUROLOGICAL: Cranial nerves II through XII grossly intact. Normal speech, gait not observed. PSYCH: Normal mood, normal affect. SKIN: Left hand crusted skin abrasion, no active bleeding noted, ROM full LLE : crusted scabbing on pretibial area with some dry blood. 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 He was able to get up, run back to his car, and come to the ED. He had lacerations to his left hand, wrist, and leg, closed with sutures. He was discharged on Keflex. Who presented to ER for evaluation of worsening erythema and edema. Admitted with cellulitis. *LLE cellulitis-failed outpatient course of Keflex - Pt received cefazolin during the hospital with improvement - remains afebrile with no leukocytosis - Pt was evaluated by ID, rec abx - seen by ortho,rec no indication for any surgical intervention cont on abx as per ID - remains clinically stable - cont wound care *Lacerations to left hand, left lower extremity -local wound care: irrigate with NS, xerofoam, gently wrap with sterile cling q12h *Hypertension-BP stable - will resume on home dose lisinopril *Carotid artery disease s/p endarterectomy -continue ASA, statin *Benign essential tremor-at baseline -not on medication *Gout-stable -will continue Allopurinol *Enlarged prostate --continue Tamsulosin *Right leg sarcoma -has had 2 post-op visits, next follow up appointment 11/19/19 * PT eval done: Cleared for home discharge with assist but pt refusing walker or cane. - fall precautions advised. Minutes to complete discharge: 35 Discharge Summary Problems reviewed: Yes Reason For Visit: WOUND INFECTION,POSTTRAUMATIC CELLULITIS LT HAND, Current Active Problems Cellulitis of left hand (Acute) Traumatic open wound of left lower leg (Acute) Wound infection, posttraumatic (Acute) Condition: Stable - Instructions Diet, Activity, Other Instructions: Low salt diet. Followup with primary care provider Dr.Martin Orlando in 1-2 weeks Inform to complete karin full course of antibiotics Augmentin twice a day for x 7 days wound care Referred to wound clinic. For any worsening LLE pain, redness,drainage, fever or chills: Advised to get medical attention. - Home Medications Comprehensive Discharge Medication List: Ambulatory Orders Alfuzosin HCl [Alfuzosin HCl ER] 10 mg PO DAILY 10/25/19 Allopurinol [Zyloprim -] 100 mg PO BID 10/25/19 Aspirin [Aspirin EC] 81 mg PO DAILY 10/25/19 Lisinopril 20 mg PO DAILY 10/25/19 Simvastatin 40 mg PO DAILY 10/25/19 Acetaminophen [Tylenol .Regular Strength -] 650 mg PO Q6H PRN #0 tablet 10/31/19 Amox-Tr/K Cl [Augmentin - 875Mg Tablet] 1 tab PO BID #14 tablet 10/31/19 Atorvastatin Ca [Lipitor] 20 mg PO HS tablet 10/31/19 This patient is new to me today: Yes Date on this admission: 10/31/19 Emergency Visit: Yes ED Registration Date: 10/29/19 Care time: The patient presented to the Emergency Department on the above date and was hospitalized for further evaluation of their emergent condition. Critical Care patient: No - Discharge Referral Referred to [facility] No
== END 2019-10-31 13:03 | disposition home or self-care (01) | DRG 603 ==
LOC: FER 09:39 → FM/S 11:15 → OBSVTOIN 21:06
PROVIDERS: ADMIT Internal Medicine; ATTEND Nurse Practitioner Family
DX: L03.114 Cellulitis of left upper limb (principal); S81.802D Unspecified open wound, left lower leg, subsequent encounter; I10 Essential (primary) hypertension; I25.10 Atherosclerotic heart disease of native coronary artery without angina pectoris; R25.1 Tremor, unspecified; N40.0 Benign prostatic hyperplasia without lower urinary tract symptoms; M1A.9XX0 Chronic gout, unspecified, without tophus (tophi); S61.412D Laceration without foreign body of left hand, subsequent encounter; W18.39XD Other fall on same level, subsequent encounter; C76.51 Malignant neoplasm of right lower limb
CPT/HCPCS: 36415; 80053; 83735; 85025; 87040; 97116-GP; 97161-GP; 99281-25; 99285-25; G0378; U0003